=== PATIENT | female | born 1985 ===

== ENCOUNTER 2024-08-19 03:06 | Observation (INO) | payer MEDICAID ==
[2024-08-19] MEDS: Insulin Isophane NPH, Human 100 Units/ML 10 ML Vial SUBCUT ONE (10:27)
[2024-08-19] MEDS ORDERED: Formoterol/Mometasone 200-5 MCG 8.8 GM Inhaler INH SCH (18:00)
[2024-08-19] MEDS ORDERED: Insulin Glarg,Human.Rec.Analog 100 Unit/ML 10 ML Vial SUBCUT SCH (21:00)
[2024-08-20] MEDS ORDERED: LIRAGLUTIDE 0.6 MG/0.1 ML SQ SCH (09:00)
[2024-08-20] MEDS ORDERED: Non-Formulary Medication 1 Each (Lisdexamfetamine [Vyvanse] 70 MG Cap) PO SCH (09:00)
== END 2024-08-19 11:23 | disposition home or self-care (01) ==
LOC: DL.ED 03:06 → DL.MS 04:35
PROVIDERS: ADMIT Internal Medicine; ATTEND Internal Medicine
DX: S43.401A Unspecified sprain of right shoulder joint, initial encounter (principal); Z88.0 Allergy status to penicillin; Z88.8 Allergy status to other drugs, medicaments and biological substances; Z79.4 Long term (current) use of insulin; Z79.899 Other long term (current) drug therapy; V49.49XA Driver injured in collision with other motor vehicles in traffic accident, initial encounter
CPT/HCPCS: 70450; 82947; 99223; A9270; J2270; 96374; 96376; 99283; 99284; G0378